=== PATIENT | female | born 1960 | race Caucasian/White ===

== ENCOUNTER → 2017-07-22 14:34 | Outpatient (CLI) | payer OTHER, MEDICAID, SELFPAY ==
[2017-07-22 15:23] LABS: Amphetamine Urine VISTA NEGATIVE (<1000 ng/mL); Barbiturate Urine VISTA NEGATIVE (< 200 ng/mL); Benzodiazepine Urine VISTA NEGATIVE (< 200 ng/mL); Cocaine Urine VISTA NEGATIVE (< 300 ng/mL); Ecstacy Urine VISTA NEGATIVE (< 500 ng/mL); Methadone Urine VISTA NEGATIVE (< 300 ng/mL); PCP Urine VISTA NEGATIVE (< 25 ng/mL); THC Urine VISTA NEGATIVE (< 50 ng/mL); Vista UDS pH Range 7
== END ==
PROVIDERS: Family Provider Family Medicine; PCP Family Medicine; Visit Provider Anesthesiology Pain Medicine
DX: M51.26 Other intervertebral disc displacement, lumbar region (principal); S33.5XXA Sprain of ligaments of lumbar spine, initial encounter; M96.1 Postlaminectomy syndrome, not elsewhere classified
CPT/HCPCS: 80307

== ENCOUNTER → 2017-08-30 11:33 | Outpatient (CLI) | payer MEDICAID, SELFPAY ==
--- NOTE | 2017-08-30 12:15 | CT_ITS ---
STUDY: CT ABDOMEN AND PELVIS WITH CONTRAST REASON FOR EXAM: Female, 56 years old. One-week history of right lower quadrant pain. History of prior left breast carcinoma with mastectomy and chemotherapy. RADIATION DOSAGE (If Supplied By Facility): CTDIvol = ( 20.40 ) mGy, DLP = ( 1894.09 ) mGycm TECHNIQUE: Transaxial images were obtained from the dome of the diaphragm to the symphysis pubis with oral contrast. 100ml ml of Isovue 300 contrast was administered. Sagittal and coronal images were reconstructed. Delayed imaging was obtained as well. Individualized dose optimization techniques were used for this CT. COMPARISON: None. FINDINGS: The visualized lung bases are unremarkable. The visualized portions of the heart are within normal limits. There are scattered small hypodense nodules in the liver most likely representing small hepatic cysts. The largest measures 1.5 cm x 1.5 cm and is in the left lobe of the liver. Normal gallbladder and extrahepatic biliary system. Normal spleen. Normal pancreas. Normal bilateral adrenal glands. Normal right kidney. Normal left kidney. There is a small hiatal hernia. Normal small intestine. Large amount of fecal material is seen in the colon. The appendix is visualized and appears normal. Findings suggests multiple small lymph nodes in the mesentery in the right lower quadrant suggestive of mesenteric adenitis. There is diffuse atherosclerotic calcification of the abdominal aorta, without a demonstrated aneurysm. Normal inferior vena cava. Normal retroperitoneum. Normal urinary bladder. Normal abdominal wall. There are diffuse degenerative changes of the visualized lumbar spine. Prior laminectomy and interpedicular screw fixation at the L4-L5 level. CT/Abdomen/Pelvis WITH Contrast IMPRESSION: Findings suggestive of a mesenteric adenitis in the right lower quadrant. Large amount of fecal material is seen in the colon. Findings incomplete with multiple small cysts in the liver. Electronically Signed: Shankar Lake MD at 15:07 EDT Tel [phone], Service support ,
[2017-08-30 12:36] LABS: Absolute Lymphocyte Count 1.07 X10^3/ul (0.83-4.51); Basophil# 0.01 X10^3/uL; Basophil% 0.2 % (0-1); Eosinophil# 0.11 X10^3/uL; Eosinophils% 2.3 % (0-5); Hematocrit 40.3 % (37-47); Hemoglobin 13.5 g/dl (12.0-15.0); Lymphocyte # 1.07 X10^3/ul (4.0); Lymphocyte % 22.6 % (19-41); Mean Corp Hgb Conc 33.5 g/gl (32-36); Mean Corpuscular Hgb 29.3 pg (27.0-32.0); Mean Corpuscular Volume 87.6 fL (81-99); Mean Platelet Vol. 9.9 fl (6.2-12.0); Monocyte# 0.58 X10^3/uL; Monocyte% 12.2 % (0-10); Neutrophil # 2.96 X10^3/uL (2.7-7.7); Neutrophil % 62.5 % (47-70); POSITIVE COUNT NO; POSITIVE DIFFERENTIAL NO; POSITIVE MORPHOLOGY NO; Platelet Count 186 K/mm3 (150-450); RBC Distribution Width CV 13.5 % (11.6-14.6); RBC Distribution Width SD 42.1 fl (35.1-43.9); White Blood Count 4.7 K/mm3 (4.4-11.0)
[2017-08-30 13:06] LABS: ALB/GLOB Ratio 1.2 RATIO (0.9-2.4); AST(SGOT) 18 U/L (15-37); Alanine Aminotransfer ALT/SGPT 25 U/L (13-56); Albumin, Serum 3.6 g/dL (3.2-5.0); Alkaline Phosphatase 86 U/L (45-117); Anion Gap 3 (5-15); BUN 13 mg/dL (7-18); BUN/Creat Ratio 17.8 RATIO (10-20); Calcium,Total 8.5 mg/dL (8.5-10.1); Chloride 107 mmol/L (98-107); Creatinine, Serum 0.73 mg/dL (0.55-1.02); EST Glomerular Filtration Rate 87 mL/min (>60); Est Glom Filt Rate - Afr Amer 105 mL/min (>60); Globulin 2.9 g/dL (2.2-4.2); Glucose 104 mg/dL (74-106); Potassium 4.2 mmol/L (3.5-5.1); Protein, Total 6.5 g/dL (6.4-8.2); Sodium Level 141 mmol/L (136-145)
== END ==
PROVIDERS: Family Provider Family Medicine; PCP Family Medicine; Visit Provider Family Medicine
DX: R10.9 Unspecified abdominal pain (principal)
CPT/HCPCS: 36415; 74177; 80053; 85025; Q9967

== ENCOUNTER → 2018-01-29 08:43 | Outpatient (CLI) | payer OTHER, MEDICAID, SELFPAY ==
[2017-01-03 22:50] VITALS: BMI 34.1
[2018-01-29 09:44] LABS: Amphetamine Urine VISTA NEGATIVE (<1000 ng/mL); Barbiturate Urine VISTA NEGATIVE (< 200 ng/mL); Benzodiazepine Urine VISTA NEGATIVE (< 200 ng/mL); Cocaine Urine VISTA NEGATIVE (< 300 ng/mL); Ecstacy Urine VISTA NEGATIVE (< 500 ng/mL); Methadone Urine VISTA NEGATIVE (< 300 ng/mL); PCP Urine VISTA NEGATIVE (< 25 ng/mL); THC Urine VISTA NEGATIVE (< 50 ng/mL); Vista UDS pH Range 7
== END ==
PROVIDERS: Family Provider Family Medicine; PCP Family Medicine; Referring Provider Anesthesiology Pain Medicine; Visit Provider Anesthesiology Pain Medicine
DX: M51.27 Other intervertebral disc displacement, lumbosacral region (principal); M96.1 Postlaminectomy syndrome, not elsewhere classified
CPT/HCPCS: 80307

== ENCOUNTER → 2018-06-11 08:07 | Outpatient (CLI) | payer OTHER, SELFPAY ==
--- NOTE | 2018-06-11 08:31 | CT_ITS ---
STUDY: CT LUMBAR SPINE WITHOUT CONTRAST REASON FOR EXAM: Female, 57 years old. Back pain and leg pain. RADIATION DOSAGE (If Supplied By Facility): CTDIvol = ( 18.68 ) mGy, DLP = ( 566.27 ) mGycm TECHNIQUE: The patient was scanned in a multi detector CT scanner. High resolution transaxial imaging was performed. Images were obtained from T12 to sacrum. Sagittal and coronal images were reconstructed. Individualized dose optimization techniques were used for this CT. COMPARISON: CT of the abdomen and pelvis dated August 30, 2017. FINDINGS: Normal lumbar lordosis. There is no substantial scoliosis. Normal alignment of the lumbar vertebral bodies. The patient has a surgical fusion of the L4, L5 and S1 vertebral segments with interpedicular screws and rods. There is mild retrolisthesis at L3-4 and L2-3. L1-2: There is narrowing of the disc space. There is mild annular disk bulge and osteophyte complex. There is mild degenerative arthropathy of the facet joints. Bilateral neuroforamina are narrowed. There is no significant acquired central canal stenosis. L2-3: There is narrowing of the disc space and vacuum disc phenomenon. There is mild annular disk bulge and osteophyte complex. There is mild degenerative arthropathy of the facet joints. Bilateral neuroforamina are narrowed. There is no significant acquired central canal stenosis. L3-4: There is eburnation of the endplates, narrowing the disc and vacuum disc phenomenon. There is mild annular disk bulge and osteophyte complex. There is mild degenerative arthropathy of the facet joints. Bilateral neuroforamina are narrowed. There is no significant acquired central canal stenosis. L4-5: There is mild annular disk bulge and osteophyte complex. There is mild degenerative arthropathy of the facet joints. Bilateral neuroforamina are narrowed. There is no significant acquired central canal stenosis. L5-S1: There is severe narrowing of the disc. There is mild anterolisthesis at this level. Patient appears to have laminectomies of L5. Neuroforamina are narrowed. There is no significant central acquired canal stenosis. There are degenerative changes of the sacroiliac joints. Normal visualized paraspinous soft tissue structures. CT/Spine Lumbar without Contrast IMPRESSION: 1. Postoperative changes at L4, L5 and S1. 2. Moderately severe multilevel degenerative disc disease and degenerative arthropathy of the lumbar spine with neural foraminal narrowing, as described. Electronically Signed: Montserrat Sánchez MD at 23:08 EDT , Service support ,
== END ==
PROVIDERS: Family Provider Family Medicine; PCP Family Medicine; Referring Provider Anesthesiology Pain Medicine; Visit Provider Anesthesiology Pain Medicine
DX: M54.9 Dorsalgia, unspecified (principal); M79.606 Pain in leg, unspecified
CPT/HCPCS: 72131

== ENCOUNTER → 2018-07-21 10:48 | Outpatient (CLI) | payer OTHER, MEDICAID, SELFPAY ==
[2017-01-03 22:50] VITALS: BMI 34.1
[2018-07-21 12:50] LABS: Amphetamine Urine VISTA NEGATIVE (<1000 ng/mL); Barbiturate Urine VISTA NEGATIVE (< 200 ng/mL); Benzodiazepine Urine VISTA NEGATIVE (< 200 ng/mL); Cocaine Urine VISTA NEGATIVE (< 300 ng/mL); Ecstacy Urine VISTA NEGATIVE (< 500 ng/mL); Methadone Urine VISTA NEGATIVE (< 300 ng/mL); PCP Urine VISTA NEGATIVE (< 25 ng/mL); THC Urine VISTA NEGATIVE (< 50 ng/mL); Vista UDS pH Range 7
== END ==
PROVIDERS: Family Provider Family Medicine; PCP Family Medicine; Referring Provider Anesthesiology Pain Medicine; Visit Provider Anesthesiology Pain Medicine
DX: F11.20 Opioid dependence, uncomplicated (principal); M51.27 Other intervertebral disc displacement, lumbosacral region; M96.1 Postlaminectomy syndrome, not elsewhere classified
CPT/HCPCS: 80307

== ENCOUNTER 2018-10-15 07:41 | Day surgery (SDC) | payer MEDICAID, SELFPAY ==
[2018-10-06 08:42] VITALS: BMI 34.1
--- NOTE | 2018-10-06 11:29 | HP_ITS ---
Intake Vital Signs 10/06/18 Body Mass Index (BMI) 34.1 10/06/18 Height 5 ft 2 in 10/06/18 Weight: 182 lb 10/06/18 Body Mass Index (BMI) 33.3 10/06/18 Blood Pressure 117/79 10/06/18 Blood Pressure Location Rt brachial 10/06/18 Respiratory Rate 18 10/06/18 Pulse Rate 69 10/06/18 Pulse Source Monitor 10/06/18 Temperature 98.0 F 10/06/18 Pulse Ox 97 10/06/18 Oxygen Delivery Method room air Intake Visit Reasons: Rectal Bleeding Chief Complaint: Sepsis, UTI Political Advisor Required: No Is patient in pain?: No Allergies hydromorphone HCl [From Dilaudid] Allergy (Verified 10/06/18 08:39) Other Medications Sertraline HCl [Zoloft] 50 mg PO QHS 02/03/14 [History Confirmed 10/06/18] Baclofen 20 mg PO QHS 05/31/15 [History Confirmed 10/06/18] Celecoxib [Celebrex] 200 mg PO BID 05/31/15 [History Confirmed 10/06/18] proMETHazine tablet [Phenergan tablet] 25 mg PO Q4H PRN PRN #10 tab 06/10/15 [Rx Confirmed 10/06/18] Multivitamin [Daily Multiple Vitamin] 1 ea PO DAILY 11/30/16 [History Confirmed 10/06/18] hydrocodone 5 mg-acetaminophen 325 mg tablet 1 tab PO Q6H PRN 10/06/18 [History Confirmed 10/06/18] pregabalin 300 mg capsule 300 mg PO BID cap 10/06/18 [History Confirmed 10/06/18] [facility] Medical History Anxiety and depression (Chronic) Obesity (Chronic) Chronic back pain (Chronic) Chest pain (Acute) flexor tenosynovitis right thumb (Acute) open infected wound right thumb (Acute) ITP (Chronic) Breast cancer (Chronic) Nausea (Acute) Rectal bleeding (Acute) history surgery left leg (Acute) Surgical History History of back surgery (Acute) History of breast surgery (Acute) History of ear surgery (Acute) History of knee surgery (Acute) history right thumb surgery (Acute) Family History Mother Cancer Throat cancer Father Diabetes Brother Diabetes Sister Diabetes Social History (Updated 10/06/18 @ 11:29 by Hector Allred MD) Smoking Status: Former smoker alcohol intake: never substance use type: does not use HPI HPI HPI: JUSTYN MOURA, is a 58 F who presents to the office today for HPI HPI Surgical H&P: Yes HPI: JUSTYN MOURA, is a 58 F who presents to the office today for evaluation of heme positive stools. Patient has been having over the last 6 weeks rectal bleeding. When she has not noticed the rectal bleeding she is usually having very loose stools with some mucus in it. In the morning she will notice that she will have a normal bowel movement but then bowel movements after that are always loose and runny with the mucus. She had a fecal occult blood test that was positive. She has never had a colonoscopy. ROS General General: Yes fatigue and breast cancer; no weight change, appetite, colon cancer or weakness HEENT HEENT: Yes difficulty swallowing; no eye injury, eye surgery, swollen glands or hoarseness Endo Endocrine: No thyroid disease, diabetes mellitus, thyroid cancer, Hair loss, heat intolerance or cold intolerance Skin Skin: No rash or changing moles Breast Breast: No left breast lump, right breast lump, nipple discharge, breast pain, abnormal mammogram, abnormal US or breast enlargement Musc Musculoskeletal: Yes back problems and arthritis; no rheumatoid arthritis, gout or joint pain Cardio Cardiovascular: No murmur, pacemaker, heart disease, atrial fibrillation, high blood pressure, heart attack, heart stent, palpitations, shortness of breat with exertion or chest pain Psych Psychiatric: Yes depression; no anxiety or hearing voices Resp Respiratory: No shortness of breath, No sleep apnea, No cough, No COPD, No asthma, No emphysema, No wheezing Gastro Gastrointestinal: No abdominal pain, No nausea or vomiting, Yes diarrhea, No constipation, Yes blood in stool, No acid reflux, Yes hemorrhoids, No ulcers, No gallbladder problem, No black,tarry stools Anatoly Hematologic: No blood thinners, No blood disorders, No bleeding, No anemia, No blood clots Neuro Neurologic: No system reviewed and no additional complaints, except as docu, No as per HPI, No abnormal walking, No abnormal hearing, No abnormal movements, No abnormal speech, No behavioral changes, No burning sensations, No confusion, No seizure-like activity, No unsteadiness, No dizziness, No localized weakness, No frequent falls, No headache(s), No lack of coordination, No loss of vision, No memory loss, Yes numbness, No other visual disturbances, No radiating pain, No restless legs, No sensory deficit, No fainting, Yes tingling, No tremor(s), No weakness, No other Exam Const General: no acute distress, well developed, well hydrated Orientation: oriented to person, oriented to place, oriented to time [facility] Head: normocephalic, atraumatic Ears: external ears normal Mouth: moist mucous membranes Eyes Sclera: sclerae normal Pupils: normal by confrontation Neck Neck: no lymphadenopathy noted Neck mass: No Thyroid: thyroid normal, symmetrical Chest Chest palpation & inspection: normal inspection of the chest Breast Palpation: No nipple discharge Resp Effort & Inspection: normal respiratory effort Auscultation: clear to auscultation bilaterally Percussion: percussion normal Cardio Rate: regular rate Rhythm: regular rhythm Heart Sounds: no murmurs GI Palpation: soft, no hepatosplenomegaly, no masses, nontender Rectal Exam: other Other: Rectal exam deferred. Extrem General: normal to inspection, no clubbing, cyanosis or edema Assessment & Plan Problems 1. Heme positive stool R19.5 Plan I have discussed the above with the patient. I have offered the patient colonoscopy for evaluation. I have explained the risks/benefits of the procedure and described the procedure. I have discussed the risks with the patient, including but not limited to: infection, bleeding, perforation of the GI tract requiring emergency surgery, inability to complete the procedure, injury to any internal organs, complications of anesthesia, etc. - the patient understands and agrees to proceed. I have answered all the patient's questions to the patient's satisfaction and the patient has no further questions. The patient has been given instructions for the colon cleansing preparation. We will be doing random colon biopsies. Orders Orders: Colonoscopy Today K62.5 Coding Level of Care Code Off vis,new,level 3 Diagnoses Heme positive stool R19.5 10/06/18 1130 <Electronically signed by Hector weber MD> Date _ Hector Allred MD I have re-examined the patient. There are no clinical changes since date of exam.
[2018-10-15] VITALS (7 sets, daily range): BP systolic 85–113; BP diastolic 45–80; PULSE 63–77; RESP 12–16; TEMP 36.3–36.6; O2SAT 94–98; BMI 31.8
--- NOTE | 2018-10-15 08:30 | COLBX_PTH ---
PATIENT: JUSTYN MOURA LOC: EN U#:[id number] AGE/SX: 58/F ROOM: RE10/15/[address]: Dr. Hector Allred MD : 1960 BED: DIS: 10/15/2018 SPEC #: [id number] RECD: 10/15/18 09:09 STATUS: SHELLIE NATAN #: [id number] AVRIL: 10/15/18 08:[address]: Hector Allred DEPT: SURGICAL PATHOLOGY RECD BY: Madelyn Huerta ENTERED: 10/15/18 10:58 SP TYPE: COLON BX OTHR DR: Dr. Segundo Ortiz MD Tissues: Rectum, NOS Procedures: Surgery Specimen Level IV HEADER OPERATION: Colonoscopy (MAC) PRE-OP DIAGNOSIS: Heme positive stool TISSUE SUBMITTED: Rectal biopsy MICROSCOPIC DIAGNOSIS Rectal biopsy: Moderate acute colitis. See microscopic description and comment. ALAN:ashish 10/16/18 COMMENT The presence of acute colitis can be due to infectious colitis, self-limited colitis or rarely due to inflammatory bowel disease. Correlation with clinical, endoscopic findings and appropriate follow up are necessary. MICROSCOPIC DESCRIPTION Slides are reviewed. The specimen shows fragments of colonic mucosa with moderate acute and chronic inflammatory cell infiltrates in the lamina propria, cryptitis and crypt abscesses. Significant glandular distortion or granulomas are not seen. GROSS DESCRIPTION Received in fixative is one container labeled with the patient's name and designated rectal biopsy. The specimen consists of multiple irregular fragments of light marin soft tissue that in aggregate measure 1 x 0.2 x 0.1 cm. The specimen is totally submitted in one cassette. / SJ:ashish 10/15/18 TC:2 CPT: 62810
--- NOTE | 2018-10-15 09:02 | OP.ENDO_ITS ---
10/15/2018 Segundo Ortiz MD [address] [place] [address] Re : Colonoscopy procedure for Pat Micah Dear Dr. Ortiz This procedure was performed on Monday, October 15, 2018. My impressions and recommendations are as follows: Impressions : - Congested, erythematous and inflamed mucosa in the rectum. Biopsied. - Diverticulosis in the sigmoid colon. No specimens collected. - The examination was otherwise normal. Recommendations : - Discharge patient to home. - Resume previous diet. - Continue present medications. - Await pathology results. - Repeat colonoscopy at appointment to be scheduled for surveillance based on pathology results. - Return to my office in 1 week. My findings are described in the full procedure note, which is enclosed. If I can be of further assistance, please feel free to contact me at Doctor phone number(s): , Fax: [phone], Work: . Sincerely, MD Hector Luna MD 10/15/2018 9:01:47 AM This report has been signed electronically.
== END 2018-10-15 10:02 | disposition home or self-care (01) ==
LOC: EN 07:42 → AC 07:44
PROVIDERS: Family Provider Family Medicine; PCP Family Medicine; Referring Provider Family Medicine; Visit Provider Surgery
PROC: 0DJD8ZZ Inspection of Lower Intestinal Tract, Via Natural or Artificial Opening Endoscopic (ICD-10-PCS; CPT 45378; principal; 2018-10-15 08:25)
DX: K52.9 Noninfective gastroenteritis and colitis, unspecified (principal); K57.30 Diverticulosis of large intestine without perforation or abscess without bleeding; K62.5 Hemorrhage of anus and rectum; D69.3 Immune thrombocytopenic purpura; R13.10 Dysphagia, unspecified; M54.9 Dorsalgia, unspecified; G89.29 Other chronic pain; F32.9 Major depressive disorder, single episode, unspecified; F41.9 Anxiety disorder, unspecified; Z79.899 Other long term (current) drug therapy; Z78.0 Asymptomatic menopausal state; Z86.2 Personal history of diseases of the blood and blood-forming organs and certain disorders involving the immune mechanism; Z85.3 Personal history of malignant neoplasm of breast; Z87.891 Personal history of nicotine dependence; Z90.10 Acquired absence of unspecified breast and nipple
CPT/HCPCS: 45380; 88305; J7120; J1610

== ENCOUNTER → 2019-08-10 10:41 | Outpatient (CLI) | payer MEDICAID, SELFPAY ==
[2018-10-15 08:01] VITALS: BMI 31.8
[2019-08-10 11:55] LABS: Amphetamine Urine VISTA NEGATIVE (<1000 ng/mL); Barbiturate Urine VISTA NEGATIVE (< 200 ng/mL); Benzodiazepine Urine VISTA NEGATIVE (< 200 ng/mL); Cocaine Urine VISTA NEGATIVE (< 300 ng/mL); Ecstacy Urine VISTA NEGATIVE (< 500 ng/mL); Methadone Urine VISTA NEGATIVE (< 300 ng/mL); PCP Urine VISTA NEGATIVE (< 25 ng/mL); THC Urine VISTA NEGATIVE (< 50 ng/mL); Vista UDS pH Range 6
== END ==
PROVIDERS: PCP Family Medicine; Referring Provider Anesthesiology Pain Medicine; Visit Provider Anesthesiology Pain Medicine
DX: M96.1 Postlaminectomy syndrome, not elsewhere classified (principal); M51.27 Other intervertebral disc displacement, lumbosacral region
CPT/HCPCS: 80307

== ENCOUNTER → 2021-01-11 10:56 | Outpatient (CLI) | payer MEDICAID, SELFPAY ==
[2021-01-11 11:45] LABS: Amphetamine Urine VISTA NEGATIVE (<1000 ng/mL); Barbiturate Urine VISTA NEGATIVE (< 200 ng/mL); Benzodiazepine Urine VISTA NEGATIVE (< 200 ng/mL); Cocaine Urine VISTA NEGATIVE (< 300 ng/mL); Ecstacy Urine VISTA NEGATIVE (< 500 ng/mL); Methadone Urine VISTA NEGATIVE (< 300 ng/mL); PCP Urine VISTA NEGATIVE (< 25 ng/mL); THC Urine VISTA NEGATIVE (< 50 ng/mL); Vista UDS pH Range 6
== END ==
PROVIDERS: PCP Family Medicine; Referring Provider Anesthesiology Pain Medicine; Visit Provider Anesthesiology Pain Medicine
DX: F11.20 Opioid dependence, uncomplicated (principal)
CPT/HCPCS: 80307

== ENCOUNTER → 2021-09-20 | Outpatient (CLI) | payer MEDICAID, OTHER, SELFPAY ==
[2021-09-20 10:06] LABS: Amphetamine Urine VISTA NEGATIVE (<1000 ng/mL); Barbiturate Urine VISTA NEGATIVE (< 200 ng/mL); Benzodiazepine Urine VISTA NEGATIVE (< 200 ng/mL); Cocaine Urine VISTA NEGATIVE (< 300 ng/mL); Ecstacy Urine VISTA NEGATIVE (< 500 ng/mL); Methadone Urine VISTA NEGATIVE (< 300 ng/mL); PCP Urine VISTA NEGATIVE (< 25 ng/mL); THC Urine VISTA NEGATIVE (< 50 ng/mL); Vista UDS pH Range 8
== END | disposition home or self-care (01) ==
LOC: LAB 09:31
PROVIDERS: PCP Family Medicine; Visit Provider Anesthesiology Pain Medicine
DX: M51.26 Other intervertebral disc displacement, lumbar region (principal); M96.1 Postlaminectomy syndrome, not elsewhere classified; S33.5XXA Sprain of ligaments of lumbar spine, initial encounter; X58.XXXA Exposure to other specified factors, initial encounter
CPT/HCPCS: 80307

== ENCOUNTER → 2022-06-20 | Outpatient (CLI) | payer OTHER, SELFPAY ==
[2022-06-20 11:11] LABS: Amphetamine Urine VISTA NEGATIVE (<1000 ng/mL); Barbiturate Urine VISTA NEGATIVE (< 200 ng/mL); Benzodiazepine Urine VISTA NEGATIVE (< 200 ng/mL); Cocaine Urine VISTA NEGATIVE (< 300 ng/mL); Ecstacy Urine VISTA NEGATIVE (< 500 ng/mL); Methadone Urine VISTA NEGATIVE (< 300 ng/mL); PCP Urine VISTA NEGATIVE (< 25 ng/mL); THC Urine VISTA NEGATIVE (< 50 ng/mL); Vista UDS pH Range 7
== END | disposition home or self-care (01) ==
PROVIDERS: PCP Family Medicine; Referring Provider Anesthesiology Pain Medicine; Visit Provider Anesthesiology Pain Medicine
DX: S33.5XXA Sprain of ligaments of lumbar spine, initial encounter (principal); M96.1 Postlaminectomy syndrome, not elsewhere classified
CPT/HCPCS: 80307

== ENCOUNTER → 2022-12-13 | Outpatient (CLI) | payer MEDICAID, SELFPAY ==
--- NOTE | 2022-12-13 14:00 | RAD_ITS ---
EXAM: XR ABDOMEN, 2 VIEWS CLINICAL INDICATION: ABDOMINAL PAIN TECHNIQUE: Frontal view of the abdomen/pelvis with upright view of the abdomen. COMPARISON: No relevant prior studies available. FINDINGS: LOWER THORAX: Lung bases are clear with elevated right hemidiaphragm. Question fullness of the cardiac silhouette on limited assessment. INTRAPERITONEAL SPACE: No free air. GASTROINTESTINAL TRACT: Stool and gas-filled colon but no small bowel obstruction. No gross evidence for urolithiasis on limited assessment due to overlying bowel gas and stool. ORGANS: Unremarkable as visualized. No organomegaly. No abnormal calcifications. BONES/JOINTS: L4-5 posterior osteometallic fusion with no hardware complications. Xbny-[id number] symmetric joint space loss at the hip joints bilaterally. No acute or healing fracture or malalignment. No unusual lytic or sclerotic lesions of bone. SOFT TISSUES: No acute pathology. VASCULATURE: Few small vascular calcifications at the inferior pelvis. RAD/Abd Inc Decub and/or Erect IMPRESSION: 1. No acute disease or bowel obstruction. 2. Prominence or gas within colon calyceal constipation Electronically Signed: Alberto Cabrera MD at 4:50 EDT ,
[2022-12-13 15:03] LABS: Absolute Lymphocyte Count 1.39 X10^3/uL (0.83-4.51); Absolute Neutrophil Count 3.1 X10^3/uL (2.0-7.7); Basophil# 0.02 X10^3/uL; Basophil% 0.4 % (0-1); Eosinophil# 0.14 X10^3/uL; Eosinophils% 2.7 % (0-5); Hematocrit 40.7 % (37-47); Hemoglobin 12.7 g/dL (12.0-15.0); Lymphocyte # 1.39 X10^3/ul (0.83-4.51); Lymphocyte % 26.9 % (19-41); Mean Corp Hgb Conc 31.2 g/dL (32-36); Mean Corpuscular Hgb 27.1 pg (27.0-32.0); Mean Platelet Vol. 9.6 fl (6.2-12.0); Monocyte# 0.54 X10^3/uL; Monocyte% 10.5 % (0-10); NRBC Flagged by Analyzer 0 % (0-5); Neutrophil # 3.06 X10^3/uL (2.7-7.7); Neutrophil % 59.3 % (47-70); Platelet Count 238 K/mm3 (150-450); RBC Distribution Width CV 13.6 % (11.6-14.6); RBC Distribution Width SD 43.6 fl (35.1-43.9); Red Blood Count 4.68 M/mm3 (4.2-5.4); White Blood Count 5.2 K/mm3 (4.4-11.0)
[2022-12-13 15:50] LABS: AST(SGOT) 32 U/L (15-37); Alanine Aminotransfer ALT/SGPT 49 U/L (13-56); Albumin, Serum 3.3 g/dL (3.2-5.0); Alkaline Phosphatase 96 U/L (45-117); Anion Gap 4 (5-15); BUN 13 mg/dL (7-18); BUN/Creat Ratio 17.2 RATIO (10-20); Calcium,Total 8.8 mg/dL (8.5-10.1); Chloride 104 mmol/L (98-107); Cholesterol 184 mg/dL (200); Creatinine, Serum 0.76 mg/dL (0.55-1.02); EST Glomerular Filtration Rate 82 mL/min (>60); Est Glom Filt Rate - Afr Amer 99 mL/min (>60); Globulin 3.4 g/dL (2.2-4.2); Glucose 109 mg/dL (74-106); High Density Lipoprotein 93 mg/dL; Potassium 3.7 mmol/L (3.5-5.1); Protein, Total 6.7 g/dL (6.4-8.2); Sodium Level 140 mmol/L (136-145); Triglycerides 109 mg/dL; Very Low Density Lipoprotein 22 mg/dL (5-40)
== END | disposition home or self-care (01) ==
LOC: MTLAB 13:54
PROVIDERS: PCP Family Medicine; Referring Provider Family Medicine; Visit Provider Family Medicine
DX: Z00.00 Encounter for general adult medical examination without abnormal findings (principal); R10.9 Unspecified abdominal pain
CPT/HCPCS: 36415; 74019; 80053; 80061; 85025

== ENCOUNTER → 2023-12-03 | Outpatient (CLI) | payer MEDICARE, SELFPAY ==
--- NOTE | 2023-12-03 10:48 | RAD_ITS ---
EXAM: XR LEFT SHOULDER COMPLETE, 5 VIEWS CLINICAL INDICATION: SHOULDER PAIN TECHNIQUE: Two or more views of the left shoulder. COMPARISON: July 27, 2020. FINDINGS: BONES/JOINTS: Left ribs appear intact. At least mild superior subluxation of the left humeral head and narrowing of the subacromial space, similar to 2020. No acute fracture. Increased apparent periarticular osteophytes at the inferior medial margin of the left humeral head SOFT TISSUES: Surgical clips projecting over the left axilla. No soft tissue swelling or gas. No radiopaque foreign body. RAD/Shoulder min 2 Views IMPRESSION: Degenerative changes. Superior subluxation of the left humeral head and narrowing of the subacromial space-rotator cuff interval. This suggests rotator cuff impingement or tear. Electronically Signed: Dinah Chang MD at 2:16 EDT ,
== END | disposition home or self-care (01) ==
LOC: RAD 10:40
PROVIDERS: PCP Family Medicine; Referring Provider Anesthesiology; Visit Provider Anesthesiology
DX: M25.512 Pain in left shoulder (principal)
CPT/HCPCS: 73030

== ENCOUNTER → 2024-01-02 | Outpatient (CLI) | payer MEDICARE, SELFPAY ==
[2024-01-02 12:12] LABS: Anion Gap 4 (5-15); BUN 16 mg/dL (7-18); BUN/Creat Ratio 21.7 RATIO (10-20); Calcium,Total 9.5 mg/dL (8.5-10.1); Chloride 101 mmol/L (98-107); Creatinine, Serum 0.74 mg/dL (0.55-1.02); EST Glomerular Filtration Rate 84 mL/min (>60); Est Glom Filt Rate - Afr Amer 102 mL/min (>60); Glucose 95 mg/dL (74-106); Potassium 4.4 mmol/L (3.5-5.1); Sodium Level 138 mmol/L (136-145)
== END | disposition home or self-care (01) ==
PROVIDERS: PCP Family Medicine; Referring Provider Family Medicine; Visit Provider Family Medicine
DX: R60.9 Edema, unspecified (principal)
CPT/HCPCS: 36415; 80048

== ENCOUNTER → 2025-02-25 | Outpatient (CLI) | payer MEDICARE, SELFPAY | END | disposition home or self-care (01) | LOC: LABSPEC 12:05 | PROVIDERS: PCP Family Medicine; Visit Provider Family Medicine | DX: R19.7 Diarrhea, unspecified (principal) | CPT/HCPCS: 87493 ==

== ENCOUNTER → 2025-02-26 | Outpatient (CLI) | payer MEDICARE, SELFPAY | END | disposition home or self-care (01) | PROVIDERS: PCP Family Medicine; Visit Provider Family Medicine | DX: R19.7 Diarrhea, unspecified (principal) ==